=== PATIENT | female | born 1935 | race Caucasian/White ===

== ENCOUNTER 2016-11-02 16:36 | Inpatient (IN) | payer MEDICARE, BC ==
[~2016-11-02] VITALS: Ht 170.2 cm; Wt 86.6 kg
[~2016-11-02 16:36] MED LIST: BETAPACE 80 MG80 MG PO; BUSPAR5 MG PO; CORDARONE200 MG PO; CORGARD40 MG PO; COZAAR100 MG PO; ELIQUIS5 MG PO; GABAPENTIN100 MG PO; HYDROCHLOROTHIA25 MG PO; LASIX20 MG PO; LIBRAX CAPSULE1 CAP PO; MULTAQ400 MG PO; NORVASC10 MG PO; NORVASC5 MG PO; POTASSIUM20 MEQ/11 PO; PREDNISONE10 MG PO; PREDNISONE5 MG PO; PRILOSEC20 MG PO; TYLENOL W/CODEI1 TAB PO
[2016-11-02 18:06] LABS: BASOPHILS 0.2 % (0.0-2.0); EOSINOPHILS 0 % (0-7); HEMOGLOBIN 12.4 g/dL (12-16); IMMATURE GRANULOCYTES 0.3 % (0-5); LYMPHOCYTES 7.4 % (15-50); MCHC 32.6 g/dL (31.0-37.0); MEAN PLATELET VOLUME 10.3 fL (7.4-10.4); MONOCYTES 6.3 % (2-11); NEUTROPHILS 85.8 % (40-80); RDW 14.8 % (11.5-14.5); WBC 12.9 10x3/uL (4.8-10.8)
[2016-11-02 18:12] LABS: PLATELET COUNT 233 10x3/uL (130-400)
[2016-11-02 18:41] LABS: ALBUMIN 2.7 g/dL (3.4-5.0); ALKALINE PHOSPHATASE 61 U/L (46-116); ALT (SGPT) 79 U/L (10-68); BILIRUBIN - TOTAL 0.62 mg/dL (0.2-1.3); CALC OSMOLALITY 278 mosm/kg (275-300); CALCIUM 8.4 mg/dL (8.5-10.1); CARBON DIOXIDE 29.6 mmol/L (21.0-32.0); CHLORIDE - SERUM 97 mmol/L (98-107); POTASSIUM - SERUM 3.5 mmol/L (3.5-5.1); PROTEIN - SERUM 6.5 g/dL (6.4-8.2); SODIUM 136 mmol/L (136-145); UREA NITROGEN 28 mg/dL (7-18); eGFR NON AFRICAN AMERICAN 25 mL/min (90-120)
[2016-11-02 18:42] LABS: GLUCOSE 125 mg/dL (74-106)
[2016-11-02 19:05] LABS: PRO BNP 14181 pg/mL (0-450)
[2016-11-02 19:09] LABS: CREATINE KINASE 1985 UL (21-215)
[2016-11-02 19:13] LABS: TROPONIN-I 0.859 ng/mL (0.000-0.060)
[2016-11-02 19:14] LABS: CKMB 8.8 U/L (0.0-3.6)
--- NOTE | 2016-11-02 21:12 | NUR ---
IN AND OUT CATH PERFORMED BY FAMILY, IV AB'S HUNG PER MAR, RAYNE WELL, DENIES NEEDS, SR'S UP X2, CL IN REACH
[2016-11-03] VITALS (55 sets, daily range): BP systolic 73–153; BP diastolic 48–103; Ht 170.2 cm; Wt 86.6 kg
--- NOTE | 2016-11-03 02:06 | NUR ---
IN AND OUT CATH PERFORMED USING SENIOR PROCUREMENT SPECIALIST PER ORDERS, 200 CC TEA COLORED URINE OBTAINED, REPOSITIONED IN BED, SR'S UP X2, CL IN REACH
--- NOTE | 2016-11-03 03:26 | NUR ---
PT AGITATED WITH VOMITING, ZOFRAN GIVEN PER MAR, FAMILY AT BEDSIDE, SR'S UP X2, CL IN REACH
--- NOTE | 2016-11-03 03:43 | NUR ---
PATIENT EXHIBITING ANXIETY AND CONFUSION, RAPID RESP WITH VOMITING, ZOFRAN ADMINISTERED PER RAYNE MENDOZA WELL, FAMILY IN ROOM HELPING CALM PATIENT, RESP THERAPY CONTACTED, MD PAGED FOR FURTHER ORDERS, AWAITING RETURN CALL, WILL MONITOR
--- NOTE | 2016-11-03 04:08 | NUR ---
PAGED SECOND TIME, AWAITING RETURN CALL
--- NOTE | 2016-11-03 04:20 | NUR ---
DR HAHN CONTACTED BY ICU NURSE, ORDERS RECIEVED TO TRANSFER TO ICU
--- NOTE | 2016-11-03 04:40 | NUR ---
PT RECEIVED FROM [facility]. PLACED ON TELEMETRY, IN UNCONTROLLED AFIB, HR IN THE 160'S. PT HAS 20G IN LEFT AC. CURRENTLY RECEIVING BREATHING TREATMENT FROM RESPIRATORY. PT O2 SAT IN LOW 80'S, HOWEVER ABG RESULTS SHOW HER AT 93. CURRENTLY CONTACTING PHYSICIANS FOR ORDERS. WILL CONTINUE TO MONITOR.
--- NOTE | 2016-11-03 04:45 | NUR ---
UPDATE GIVEN TO DR. HAHN VIA PHONE, NEW ORDERS RECIEVED
--- NOTE | 2016-11-03 04:50 | NUR ---
CONSULT CALLED TO DR. LAWS, NEW ORDERS RECEIVED
--- NOTE | 2016-11-03 04:55 | NUR ---
CONSULT CALLED TO DR. FERRIS, NEW ORDERS RECIEVED,
--- NOTE | 2016-11-03 05:15 | NUR ---
DR. HAHN AT BEDSIDE, UPDATE GIVEN
[2016-11-03 05:24] LABS: BASOPHILS 0.1 % (0.0-2.0); EOSINOPHILS 0 % (0-7); HEMATOCRIT 35.8 % (36.0-48.0); HEMOGLOBIN 11.6 g/dL (12-16); IMMATURE GRANULOCYTES 0.3 % (0-5); LYMPHOCYTES 4.4 % (15-50); MCH 30.9 pg (26.0-34.0); MCHC 32.4 g/dL (31.0-37.0); MCV 95.2 fL (80.0-100.0); MEAN PLATELET VOLUME 9.9 fL (7.4-10.4); MONOCYTES 6.2 % (2-11); PLATELET COUNT 215 10x3/uL (130-400); RBC 3.76 10x6/uL (4.00-5.40); RDW 14.8 % (11.5-14.5); WBC 14.8 10x3/uL (4.8-10.8)
[2016-11-03 05:49] LABS: ALBUMIN 2.3 g/dL (3.4-5.0); ALKALINE PHOSPHATASE 51 U/L (46-116); ALT (SGPT) 74 U/L (10-68); BILIRUBIN - TOTAL 0.53 mg/dL (0.2-1.3); CALC OSMOLALITY 280 mosm/kg (275-300); CALCIUM 8.3 mg/dL (8.5-10.1); CARBON DIOXIDE 28.5 mmol/L (21.0-32.0); CHLORIDE - SERUM 98 mmol/L (98-107); GLUCOSE 110 mg/dL (74-106); POTASSIUM - SERUM 3.4 mmol/L (3.5-5.1); PROTEIN - SERUM 5.9 g/dL (6.4-8.2); SODIUM 137 mmol/L (136-145); UREA NITROGEN 28 mg/dL (7-18); eGFR NON AFRICAN AMERICAN 25 mL/min (90-120)
[2016-11-03 06:05] LABS: CKMB 4.1 U/L (0.0-3.6)
[2016-11-03 06:07] LABS: CREATINE KINASE 1611 UL (21-215); TROPONIN-I 0.872 ng/mL (0.000-0.060)
--- NOTE | 2016-11-03 07:00 | NUR ---
REPORT RECIEVED, INTITIAL ASSESSMENT COMPLETE, PLEASE SEE FLOW SHEETS FOR DETAILS. BED LOW AND LOCKED, CALL LIGHT IN REACH. PT RESTLESS, TALKING ABOUT GOING TO HER MOTHER IN THE KITCHEN, BUT KNOWS WHO SHE IS, THE YEAR, WHERE SHE IS, AND WHATS GOING ON. TRYING TO GET OOB. DENIES PAIN. WILL CONTINUE TO MONITOR.
--- NOTE | 2016-11-03 09:35 | NUR ---
DR FERRIS SPOKE WITH FAMILY AND PT WAS GIVE A CODE STATUS OF DNR.
--- NOTE | 2016-11-03 09:38 | NUR ---
PT RHYTHM CONVERTED TO SINUS RHYTHM AND IS NOW AT A REATE OF 50. PAGED DR LAWS TO NOTIFY HIM.
--- NOTE | 2016-11-03 09:41 | NUR ---
HR WAS 49, CHANGED NEXTERONE TO 0.5MG/HR.
--- NOTE | 2016-11-03 09:44 | NUR ---
SPOKE WITH DR LAWS, HE AGREED TO THE CHANGE IN THE NEXTERONE RATE AND WAS NOTIFIED OF PT STATUS. HE ALSO WANTS ALL PO MEDS HELD PT IS NOT DOING WELL WITH THAT. WILL CONTINUE TO MONITOR.
--- NOTE | 2016-11-03 10:04 | NUR ---
Is the patient Alert and Oriented? No 0 * How many steps to enter\exit or inside your home? 4 0 * PCP DR. CHEN 0 * Pharmacy [facility] IN [place] 0 * Preadmission Environment Home with Family 0 * ADLs Independent 0 * Equipment Rolling Walker 0 * List name and contact numbers for known caregivers / representatives who currently or will assist patient after discharge: : CHANDU (H) [phone] (C) [phone] NEICE: TONE BALLARD [phone] 0 * Community resources currently utilized Home Health 0 * Please name any agencies selected above. PATIENT IS CURRENT WITH [employer] 0 * Additional services required to return to the preadmission environment? No 0 * Can the patient safely return to the preadmission environment? Yes 0 * Has this patient been hospitalized within the prior 30 days at any hospital? No 0 PATIENT IS ON 100% MASK. SHE IS NOT ABLE TO ANSWER QUESTIONS AT THIS TIME. HER NEICE, TONE, IS AT THE BEDSIDE AND PROVIDING INFORMATION. PATIENT LIVES AT HOME WITH HER , LYLY. SHE WAS INDEPENDENT WITH HER WALKER AT HOME. HE WILL BE AVAILABLE TO DRIVE HER HOME AT DISCHARGE. PATIENT'S PCP IS DR. CHEN. SHE GETS HER MEDS FROM [facility] IN [place]. SHE HAS A WALKER AT HOME. PATIENT HAS HELP THAT COMES IN FOR ASSISTANCE IN THE HOME DOING CHORES. PATIENT IS CURRENT WITH [employer]. PATIENT MAY BENEFIT FROM REHAB AT DISCHARGE IF SHE QUALIFIES AND IS AGREEABLE. CM TO FOLLOW.
[2016-11-03 10:57] LABS: APPEARANCE CLEAR (CLEAR); BILIRUBIN NEGATIVE (NEGATIVE); COLOR YELLOW (YELLOW); GLUCOSE NEGATIVE (NEGATIVE); KETONE NEGATIVE (NEGATIVE); LEUKOCYTE ESTERASE TRACE (NEGATIVE); NITRITE NEGATIVE (NEGATIVE); PROTEIN 1+ mg/dL (NEGATIVE); SPECIFIC GRAVITY 1.015 (1.005-1.020); UROBILINOGEN NORMAL (NORMAL); WHITE CELLS - URINE 0-5 /hpf (0-5)
[2016-11-03 10:58] LABS: BACTERIA FEW /hpf (NONE SEEN); EPITHELIAL CELLS RARE /hpf (0-5); MUCUS <1+ /lpf (NONE SEEN); RED CELLS - URINE RARE /hpf (0-5)
--- NOTE | 2016-11-03 11:00 | NUR ---
REASSESSMENT COMPLETE, PLEASE SEE FLOW SHEETS FOR DETAILS. RECIEVED ORDERS FOR 1MG ATIVAN Q4H PRN FROM DR FERRIS FOR ANXIETY. PT RESTLESS IN BED AND WANTING TO LEAVE. SHE IS CONFUSED AND MOST OF WHAT SHE IS SAYING IS NOT RECOGNIZABLE WORDS. AT BEDSIDE. VSS AT THIS TIME, WILL CONTINUE TO MONITOR.
--- NOTE | 2016-11-03 11:45 | NUR ---
USING NURSING JUDGEMENT, GAVE PT ORDERED PRN MORPHINE, DISPLAYING SYMPTOMS OF BEING IN PAIN.
--- NOTE | 2016-11-03 13:00 | NUR ---
PT RESTING, AT BEDSIDE. NO NEEDS/PAIN AT THIS TIME. WILL CONTINUE TO MONITOR.
--- NOTE | 2016-11-03 15:00 | NUR ---
REASSESSMENT COMPLETE, PLEASE SEE FLOW SHEETS FOR DETAILS. VSS AT THIS TIME, BED LOW AND LOCKED, ALARM ON, CALL LIGHT IN REACH, WILL CONTINUE TO MONITOR.
--- NOTE | 2016-11-03 17:03 | NUR ---
PT RESTING, DENIES PAIN/NEEDS AT THIS TIME. VSS AT THIS TIME, BED LOW AND LOCKED, AT BEDSIDE. WILL CONTINUE TO MONITOR.
--- NOTE | 2016-11-03 19:00 | NUR ---
RECEIVED PATIENT IN BED RESTING WITH EYES CLOSED, AT BEDSIDE. PATIENT IS DISORIENTED TO TIME/SITUATION, EYES PERRLA @ 4MM WITH BRISK RESPONSE. NON-REBREATHER @ 15L IN USE, PATIENT KEEPS REMOVING MASK AND REPLACING ON FACE. S1/S2 NOTED WITH PATIENT IN CONTROLLED AFIB ON TELEMETRY. BREATHING IS SHALLOW AND AND PATIENT BECOMES SOB QUICKLY WITHOUT MASK, EXPIRATORY WHEEZE NOTED BILATERAL UPPER AND DIMINISHED LOWER LOBES. ABDOMEN IS SOFT AND NON-TENDER, BOWEL SOUNDS ACTIVE X4. PATIENT HAS DISLOCATED R SHOULDER IMMOBILIZED IN SLING, FULL ROM REMAINING EXTREMITIES. PATIENT HAS NEWBY SECURED BY STATLOCK WITH CONCENTRATED YELLOW URINE NOTED IN COLLECTION. ALL PULSES PALPABLE, SLIGHT WEAKNESS NOTED ALL EXTREMITIES. PIV NOTED IN L AC WITH TRIPLE LUMEN ATTATCHED, SEE FLOW SHEET FOR FLUIDS. BED TABLE/CALL LIGHT IN REACH, PATIENT DENIES PAIN OR OTHER NEEDS AT THIS TIME. PATIENT INSTRUCTED TO CALL FOR ASSISTANCE, WILL CONTINUE TO MONITOR.
--- NOTE | 2016-11-03 21:00 | NUR ---
REPOSITIONED FOR COMFORT AND ORAL CARE PROVIDED. PATIENT REQUESTED WATER AND WAS ABLE TO SWALLOW 2100 MEDS WITHOUT DIFFICULTY. PATIENT RESTING IN BED WITH EYES CLOSED AND BREATHING SHALLOW ON NON-REBREATHER. WILL CONTINUE TO MONITOR.
--- NOTE | 2016-11-03 23:00 | NUR ---
REASSESSMENT COMPLETE, PATIENT DISORIENTED TO TIME. PATIENT ON NON-REBREATHER @ 15L, BREATHING IS SHALLOW AND IRREGULAR. PATIENT IN CONTROLLED AFIB ON TELEMETRY, S1/S2 NOTED. R ARM IN SLING FROM R SHOULDER DISLOCATION, CAREFULLY REPOSITIONED FOR COMFORT. PATIENT C/O NEEDING TO URINATE, EXPLAINED TO PATIENT ABOUT CATHETER AND FUNCTION. PATIENT STATES UNDERSTANDING, BUT STILL WANTS TO GET UP TO URINATE. PATIENT AT BEDSIDE, INSTRUCTED TO CONTACT NURSES FOR ASSISTANCE. PATIENT DENIES OTHER NEEDS AT THIS TIME, WILL CONTINUE TO MONITOR.
[2016-11-04] VITALS (25 sets, daily range): BP systolic 98–149; BP diastolic 60–94
--- NOTE | 2016-11-04 01:10 | NUR ---
PATIENT RESTING IN BED WITH EYES CLOSED ON NON-REBREATHER @ 15L. PATIENT GIVEN PRN ATIVAN FOR ANXIETY, NOW RESTING QUIETLY. ORAL CARE/REPOSITIONING PROVIDED FOR COMFORT, HASBAND AT BEDSIDE. NO FURTHER NEEDS AT THIS TIME, WILL CONTINUE TO MONITOR.
--- NOTE | 2016-11-04 03:00 | NUR ---
REASSESSMENT COMPLETE, NO CHANGES FROM PREVIOUS ASSESSMENT. PATIENT RESTING IN BED WITH EYES CLOSED, BREATHING IS SHALLOW AND IRREGULAR ON NON-REBREATHER @ 15L. ORAL CARE AND REPOSITIONING FOR COMFORT, STAYING AT BEDSIDE. PATIENT DENIES PAIN OR OTHER NEEDS AT THIS TIME, ALL VSS. WILL CONTINUE TO MONITOR.
[2016-11-04 04:18] LABS: BASOPHILS 0.1 % (0.0-2.0); EOSINOPHILS 0.3 % (0-7); HEMATOCRIT 39.7 % (36.0-48.0); HEMOGLOBIN 12.6 g/dL (12-16); IMMATURE GRANULOCYTES 0.4 % (0-5); LYMPHOCYTES 8.5 % (15-50); MCH 30.2 pg (26.0-34.0); MCHC 31.7 g/dL (31.0-37.0); MCV 95.2 fL (80.0-100.0); MEAN PLATELET VOLUME 10.8 fL (7.4-10.4); MONOCYTES 9.1 % (2-11); NEUTROPHILS 81.6 % (40-80); PLATELET COUNT 256 10x3/uL (130-400); RBC 4.17 10x6/uL (4.00-5.40); RDW 14.8 % (11.5-14.5); WBC 14.8 10x3/uL (4.8-10.8)
[2016-11-04 04:46] LABS: ALBUMIN 2.3 g/dL (3.4-5.0); ANION GAP 13.4 mmol/L (8-16); BILIRUBIN - TOTAL 0.38 mg/dL (0.2-1.3); CARBON DIOXIDE 28.9 mmol/L (21.0-32.0); CREATININE - SERUM 2.3 mg/dL (0.6-1.3); MAGNESIUM - SERUM 2.1 mg/dL (1.8-2.4); POTASSIUM - SERUM 4.3 mmol/L (3.5-5.1); PROTEIN - SERUM 6.3 g/dL (6.4-8.2)
--- NOTE | 2016-11-04 05:00 | NUR ---
PATIENT RESTING IN BED WITH EYES CLOSED, RESTING IN CHAIR AT BEDSIDE. ORAL CARE AND REPOSITIONING PROVIDED, NO FURTHER NEEDS AT THIS TIME. WILL CONTINUE TO MONITOR.
--- NOTE | 2016-11-04 07:21 | NUR ---
REPORT RECIEVED, INITIAL ASSESSMENT COMPLETE, PLEASE SEE FLOW SHEETS FOR DETAILS. PROVIDED ORAL CARE AND TURNING. BED LOW AND LOCKED, CALL LIGHT IN REACH, SCD'S ON AND RUNNING-SKIN CHECK COMPLETE AND WNL. VSS AT THIS TIME, WILL CONTINUE TO MONITOR.
--- NOTE | 2016-11-04 09:00 | NUR ---
FAMILY AT BEDSIDE, PT REQUESTING SIPS OF WATER. SHE IS COHERENT AND IS DEMANDING IT, SO IT WAS PROVIDED AND SHE DID WELL WITH IT THOUGH COUGHED AFTERWARD, THOUGH STATED IT WAS NOT GOING "DOWN THE WRONG PIPE". VSS AT THIS TIME, WILL CONTINUE TO MONITOR.
--- NOTE | 2016-11-04 10:00 | NUR ---
SPOKE WITH DR FERRIS ABOUT PT GETTING SIPS OF WATER, HE WANTS HER TO BE OFFERED FOOD, ALLOWED SIPS OF WATER AND TO START PROCALAMINE AT 50ML/HR.
--- NOTE | 2016-11-04 11:20 | NUR ---
REASSESSMENT COMPLETE, PLEASE SEE FLOW SHEETS FOR DETAILS. IV INFILTRATED, BED WET, TWO TRIES GOT NEW IV IN LEFT FOREARM. FULL BED BATH AND LINEN CHANGE. TURNED TO SIDE. VSS AT THIS TIME, WILL CONTINUE TO MONITOR.
--- NOTE | 2016-11-04 13:00 | NUR ---
PT RESTING, DENIES PAIN/NEEDS AT THIS TIME, BED LOW AND LOCKED, CALL LIGHT IN REACH. VSS AT THIS TIME, WILL CONTINUE TO MONITOR.
--- NOTE | 2016-11-04 13:02 | CN ---
PATIENT NAME:DIANDRA SRIVASTAVA MEDICAL RECORD: [id number] : 33 LOCATION:[id number] ADMIT DATE: 11/02/16 ACCOUNT: [id number] CONSULTING PHYSICIAN: PRISCA LAWS MD REFERRING PHYSICIAN: HUGO HAHN M.D. 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 The patient intermittently oriented. She has reverted back to atrial fibrillation, currently on Cordarone drip. A few episodes of MAT ____ she is attempting to convert to sinus rhythm, pressure is tolerating. We are to see her regarding her cardiovascular status. PAST MEDICAL HISTORY: Includes: 1. History of hypertension. 2. Atrial fibrillation. 3. Congenital heart disease described above. MEDICATIONS: Librax 1 t.i.d., nadolol 40 every day, amlodipine 10 every day, Cordarone 200 b.i.d., losartan 100 every day, BuSpar 5 every day, Lasix 20 every day, and omeprazole 20 every day. SOCIAL HISTORY: Unobtainable. REVIEW OF SYSTEMS: Unobtainable. PHYSICAL EXAMINATION: GENERAL: Elderly female, currently on nonrebreather, intermittently answers questions. VITAL SIGNS: Blood pressure 104/88, pulse currently 106. HEENT: Normocephalic and atraumatic. NECK: No bruits are noted. HEART: Irregular, II/ systolic ejection murmur. LUNGS: Decreased air excursion, some expiratory wheezes. ABDOMEN: Soft and nontender. EXTREMITIES: Pulses are actually palpable, 1+. There is no edema. DIAGNOSTIC DATA: ECG shows initially sinus rhythm, then atrial fibrillation. IMPRESSION: Intermittent atrial fibrillation. At this point, suspect secondary to recent injury, increased catecholamine drive, etc. PLAN: Continue IV amiodarone, this should provide both for rate control and hopefully restore normal sinus rhythm as current hospital course improves. Further recommendations based on above. TRANSINT:[id number] Voice Confirmation ID: [id number] DOCUMENT ID: [id number] CONSULT REPORT [id number] KLDIANDRA BALLARD,PRISCA Henson MD at 1302 CC: [id number] DICTATION DATE: 11/03/1650 CALL WORKER PERSON: 11/03/16 1000 ADM IN [facility] [address] [id number]
--- NOTE | 2016-11-04 15:00 | NUR ---
REASSESSMENT COMPLETE, PLEASE SEE FLOW SHEETS FOR DETAILS. VSS AT THIS TIME, WILL CONTINUE TO MONITOR.
--- NOTE | 2016-11-04 17:01 | NUR ---
PT RESTING, FAMILY AT BEDSIDE. DENIES PAIN/NEEDS AT THIS TIME, WILL CONTINUE TO MONITOR.
--- NOTE | 2016-11-04 19:20 | NUR ---
RECEIVED PATIENT ASLEEP IN BED WITH EYES CLOSED, BREATHING IS SHALLOW AND RAPID. PATIENT IS DISORIENTED TO TIME/SITUATION, BECOMES SHORT OF BREATH WHEN REMOVED FROM MASK. EYES PERRLA @ 3MM WITH BRISK RESPONSE, SCLERA IS WHITE AND CLEAR. NON-REBREATHER MASK IN USE @ 15L, PADDING PLACED OVER BRIDGE OF NOSE TO PREVENT BREAKDOWN. S1/S2 NOTED WITH PATIENT IN CONTROLLED AFIB ON TELEMETRY. BREATHING IS RAPID AND SHALLOW WITH USE OF ACCESSORY MUSCLES, EXPIRATORY WHEEZE NOTED BILATERAL UPPER WITH DIMINISHED LOWER LOBES. ABDOMEN IS DISTENDED AND SOFT, NON-TENDER TO PALPATION. 16FR NEWBY SECURED BY STATLOCK WITH YELLOW CONCENTRATED URINE NOTED IN BAG. ALL PULSES PALPABLE WITH WEAKNESS NOTED IN ALL EXTREMITIES. 20G IV NOTED L FOREARM, SEE FLOW SHEET FOR FLUIDS. PATIENT RECEIVING PROCALAMINE IV @ 50ML/HR, NO REDNESS OR IRRITATION NOTED. PATIENT REPOSITIONED FOR COMFORT, AT BEDSIDE. NO FURTHER NEEDS AT THIS TIME, WILL CONTINUE TO MONITOR.
--- NOTE | 2016-11-04 21:00 | NUR ---
PATIENT RESTING IN BED WITH EYES CLOSED, BREATHING IS SHALLOW AND RAPID WITH USE OF ACCESSORY MUSCLES. PATIENT ON 15L VIA NON-REBREATHER MASK, EXPIRATORY WHEEZE NOTED BILATERAL UPPER LOBES AND DIMINISHED LOWER LOBES. PATIENT AT BEDSIDE, DISCUSSED ANY QUESTIONS. VSS AND WILL CONTINUE TO MONITOR.
--- NOTE | 2016-11-04 23:00 | NUR ---
REASSESSMENT COMPLETE, PATIENT LAYING IN BED WITH EYES CLOSED. BREATHING IS IRREGULAR AND SHALLOW WITH USE OF ACCESSORY MUSCLES. EXPIRATORY WHEEZE NOTED BILATERAL UPPER LOBES WITH DIMINISHED LOWER LOBES. PATIENT IS SLIGHTLY PALE AND RESTLESS, ELEVATED HOB AND REPOSITIONED. PATIENT REQUESTED WATER AND HAD NO DIFFICULTIES SWALLOWING, INSTRUCTED ON HOW TO PROVIDE LIQUIDS. PATIENT IN CONTROLLED AFIB ON TELEMETRY WITH RATE OF 89, NO FURTHER NEEDS AT THIS TIME. ALL VSS AND WILL CONTINUE TO MONITOR.
[2016-11-05] VITALS (25 sets, daily range): BP systolic 93–144; BP diastolic 50–99
--- NOTE | 2016-11-05 03:00 | NUR ---
REASSESSMENT COMPLETE, PATIENT RESTING IN BED WITH EYES CLOSED. BREATHING IS SHALLOW AND RAPID WITH USE OF ACCESSORY MUSCLES, EXPIRATORY WHEEZE NOTED BILATERAL UPPER WITH DIMINISHED LOWER.S1/S2 NOTED WITH PATIENT IN CONTROLLED AFIB ON TELEMETRY. AT BEDSIDE, DISCUSSED QUESTIONS OR CONCERNS HE HAS. ALL VSS, NO FURTHER NEEDS AT THIS TIME, WILL CONTINUE TO MONITOR.
--- NOTE | 2016-11-05 05:00 | NUR ---
PATIENT CONSTANTLY REMOVES MASK WHILE RESTING, AND RN HAVE REPLACED MULTIPLE TIMES. PATIENT O2 SAT DROPS DRAMATICALLY WHEN OFF OF OXYGEN, DISCUSSED WITH NEED FOR MASK. EXPIRATORY WHEEZE NOTED BILATERAL UPPER AND DIMINISHED LOWER LOBES, BREATHING IS RAPID AND SHALLOW WITH USE OF ACCESSORY MUSCLES. REPOSITIONED FOR COMFORT, NO FURTHER NEEDS AT THIS TIME. ALL VSS AND WILL CONTINUE TO MONITOR.
[2016-11-05 05:14] LABS: BASOPHILS 0.2 % (0.0-2.0); EOSINOPHILS 0.8 % (0-7); HEMATOCRIT 38.6 % (36.0-48.0); HEMOGLOBIN 12.5 g/dL (12-16); IMMATURE GRANULOCYTES 0.2 % (0-5); LYMPHOCYTES 9.4 % (15-50); MCH 30.6 pg (26.0-34.0); MCHC 32.4 g/dL (31.0-37.0); MCV 94.6 fL (80.0-100.0); MEAN PLATELET VOLUME 10.9 fL (7.4-10.4); MONOCYTES 8.1 % (2-11); NEUTROPHILS 81.3 % (40-80); PLATELET COUNT 243 10x3/uL (130-400); RBC 4.08 10x6/uL (4.00-5.40); WBC 12.6 10x3/uL (4.8-10.8)
[2016-11-05 05:29] LABS: ALBUMIN 1.9 g/dL (3.4-5.0); ANION GAP 12.3 mmol/L (8-16); BILIRUBIN - TOTAL 0.39 mg/dL (0.2-1.3); CALCIUM 8.6 mg/dL (8.5-10.1); CARBON DIOXIDE 29.8 mmol/L (21.0-32.0); CREATININE - SERUM 2.3 mg/dL (0.6-1.3); MAGNESIUM - SERUM 2.3 mg/dL (1.8-2.4); POTASSIUM - SERUM 4.1 mmol/L (3.5-5.1); PROTEIN - SERUM 5.1 g/dL (6.4-8.2)
--- NOTE | 2016-11-05 08:00 | NUR ---
SPOKE WITH PT WHO STATED HE WISHED TO KNOW MORE INFORMATION ABOUT HOSPICE. CASE MANAGEMENT NOTIFIED. WILL CONTINUE PLAN OF CARE.
--- NOTE | 2016-11-05 09:00 | NUR ---
PT REQUESTED TO USE BEDPAN TO HAVE A BOWEL MOVEMENT. NOTED NO BOWEL MOVEMENT. BOWEL SOUNDS HYPOACTIVE TO ALL QUADRANTS. NO ACUTE DISTRESS NOTED. REPOSITIONING PROVIDED TO PT. WILL CONTINUE PLAN FO CARE.
--- NOTE | 2016-11-05 09:41 | NUR ---
I SPOKE WITH FAMILY YESTERDAY REGARDING INTEREST IN HOSPICE FOR THE PATIENT. THEY HAD WANTED TO SPEAK WITH PATIENT'S AND HE WOULD LET US KNOW HIS THOUGHTS TODAY. I SPOKE WITH PATIENT'S , LYLY. HE REQUESTED TO SPEAK WITH HOSPICE FOR INFORMATIONAL MEETING. I CONTACTED [facility] AND PIERRE IS COMING TO SPEAK WITH CHANDU AND HIS FAMILY MEMBER, DANIELLE BOYD. CM TO FOLLOW.
--- NOTE | 2016-11-05 09:54 | NUR ---
NUTRITION MONITORING & EVAL CHART REVIEWED. PT REMAINS NPO. PROCALAMINE STARTED @ 50 CC/HR. PROVIDING ~300 KCAL, [address] FOLLOWING
--- NOTE | 2016-11-05 10:00 | NUR ---
NOTED NEW ORDER FOR NGT PLACEMENT. ALSO NOTED ORDER TO START NGT FEEDINGS AFTER NGT IS PLACED. NOTIFIED NUTRITION. WILL PLACE NGT SHORTLY.
--- NOTE | 2016-11-05 10:09 | NUR ---
FAMILY HAS MET WITH [facility], PIERRE. THEY ARE WANTING TO WAIT UNTIL TUESDAY TO MAKE A DECISION BECAUSE PATIENT HAS JUST BEEN STARTED ON A NEW ABX. PATIENT'S FAMILY WANTS HER TO REMAIN IN ICU AND HER AND FAMILY ARE STAYING WITH HER. SHE IS A DNR. WILL AWAIT DISCUSSION WITH DR. HAHN REGARDING STAYING IN ICU AND FAMILY STAYING WITH HER.
--- NOTE | 2016-11-05 10:16 | NUR ---
SUCTIONING SET UP IN ROOM AT THIS TIME. THIS NURSE WENT TO SET UP TO PLACE NGT PER DR ORDERS, PT STATED HE DID NOT WANT THE NGT PLACED UNTIL HE SPEAKS WITH PT DR HAHN FIRST. WILL RESPECT PT FAMILY REQUEST.
--- NOTE | 2016-11-05 10:16 | NUR ---
NUTRITION MONITORING & EVAL WILL START TUBE FEEDS PER MD VERBAL ORDER. 1)PULMOCARE @ 10 CC/HR 2)INCREASE 10 CC/HR Q 8 HOURS TOLERATED TO GOAL RATE 50 CC/HR 3)75 CC H2O FLUSH Q 4 HOURS PER PUMP PROCALAMINE TO DC WHEN TF'S START RD FOLLOWING
--- NOTE | 2016-11-05 10:22 | NUR ---
LYING IN BED RESITNG AT THIS TIME. PT STILL NOTED TO PULL NONREBREATHER MASK OFF FREQUENTLY. REORIENTATION PROVIDED TO PT AND MASK PLACED BACK TO PT FACE. NO ACUTE DISTRESS NOTED. WILL CONTINUE PLAN FO CARE.
--- NOTE | 2016-11-05 11:31 | NUR ---
RESTING QUIETLY AT THIS TIME. NO ACUTE DISTRESS NOTED. PT STILL NOTED TO TAKE OFF NONREBREATHER MASK. FAMILY AT BEDSIDE AND REMINDS PT TO KEEP NONREBREATHER ON AND HELPS KEEP MASK IN PLACE. DENIES ANY NEEDS. WILL CONTINUE PLAN FO CARE.
--- NOTE | 2016-11-05 13:06 | NUR ---
NOTED SOME IV MED ORDERED WHICH ARE NOT COMPATIBLE WITH OTHER ORDERED IV MEDS. SECOND PERIPHERAL IV SET TO RIGHT FOREARM, 22G. FLUSHES WELL. NO ACUTE DISTRESS NOTED AT THIS TIME. FAMILY AT BEDSIDE. WILL CONTINUE PLAN OF CARE.
--- NOTE | 2016-11-05 14:41 | NUR ---
PT NOTED ATTEMPTING TO SIT UP IN BED. STAFF ASKED PT IF SHE WAS UNCOMFORTABLE, PT STATED YES. REPOSITIONING PROVIDED, PT STATED COMFORT. NO ACUTE DISTRESS NOTED. PT IS NOTED TO NOT BE PULLING NONREBREATHER MASK OFF OFTEN AT THIS ITME. WILL CONTINUE PLAN OF CARE.
--- NOTE | 2016-11-05 15:55 | NUR ---
NOTED PT HEART RATE OF SINUS JUAN M OF 48. WILL CALL NODE JS DEVELOPER BASE MANAGER FOR PT.
--- NOTE | 2016-11-05 16:02 | NUR ---
CALLED OFFICE OF DR GRANADO TO SEE WHO IS NIGHT AUDITOR FOR CARDIOLOGY, NOTED DR LAWS IS NIGHT AUDITOR, DR LAWS HAD COME AND SEEN PT WHEN CONSULT WAS PLACED ON 11/03. DR LAWS PAGED. AT THIS TIME.
--- NOTE | 2016-11-05 16:11 | NUR ---
SPOKE WITH DR LAWS, NOTED ORDER TO STOP NITRO. ALSO ORDERED TO STOP CORDARONE FOR TODAY AND HE WOULD BE BY TO SEE PT TO REEVALUATE TOMORROW. WILL FOLLOW THROUGH WITH ORDERS. WILL CONTINUE PLAN OF CARE.
--- NOTE | 2016-11-05 17:04 | NUR ---
REPOSITIONING PROVIDED TO PT. PT NOTED TO SIT UP IN BED AND ATTEMPT TO TURN SELF. PT STATED COMFORT AFTER REPOSITIONING PROVIDED. NO ACUTE DISTRESS NOTED. FAMILY AT BEDSIDE. WILL CONTNIUE PLAN FO CARE.
--- NOTE | 2016-11-05 17:43 | NUR ---
RESTING IN BED AT THIS TIME. NO ACUTE DISTRESS NOTED. AWAKENS EASILY WHEN SPOKEN TO. FAMILY AT BEDSIDE. WILL CONTINUE PLAN OF CARE.
--- NOTE | 2016-11-05 19:30 | NUR ---
PT LETHARGIC AND CONFUSED, REORIENTATION PROVIDED, FAMILY AT BEDSIDE. NON REBREATHER IN PLACE @ 15L, SPO2 92 WITH EXP WHEEZING HEARD. PT REPOSITIONED WITH BONY PROMINENCES BRIDGED, RT ARM IN SLING. DENIES PAIN. FOLLOWS SIMPLE COMMANDS. BED ALARM ON, ROOM VISIBLE FROM NURSES STATION. CPOC.
--- NOTE | 2016-11-05 20:00 | NUR ---
SELMA AT BEDSIDE WITH FAMILY. NOTES PT AGITATION, NEW ORDERS REC'D.
--- NOTE | 2016-11-05 21:25 | NUR ---
FAMILY AT BEDSIDE. PT REMAINS CONFUSED AND RESTLESS. SPO2 92. PT REPOSITIONED FOR COMFORT. DENIES PAIN AT THIS TIME. BED ALARM ON, ROOM VISIBLE FROM NURSES STATION. CPOC.
--- NOTE | 2016-11-05 23:33 | NUR ---
REASSESSMENT COMPLETE, SEE FLOWSHEET FOR ALL FINDINGS. NO ACUTE CHANGES AT THIS TIME. PT REPOSITIONED IN BED WITH BONY PROMINENCES BRIDGED. DENIES PAIN. AT BEDSIDE PROVIDING REORIENTATION. PT REMAINS SOB WITH AUDIBLE EXP WHEEZING. SPO2 91. BED ALARM ON, ROOM VISIBLE FROM NURSES STATION. CPOC.
[2016-11-06] VITALS (25 sets, daily range): BP systolic 104–140; BP diastolic 47–98
--- NOTE | 2016-11-06 01:27 | NUR ---
PARTIAL LINEN CHANGE COMPLETE. DENIES PAIN AT THIS TIME. PT REPOSITIONED IN BED FOR COMFORT. ORAL CARE PROVIDED. NO ACUTE CHANGES AT THIS TIME. ROOM VISIBLE FROM NURSES STATION, CPOC.
--- NOTE | 2016-11-06 03:35 | NUR ---
REASSESSMENT COMPLETE, SEE FLOWSHEET FOR ALL FINDINGS. NO ACUTE CHANGES AT THIS TIME. PT RESTING QUIETLY WITH AT BEDSIDE. NO S/S OF PAIN AT THIS TIME. PT REPOSITIONED WITH BONY PROMINENCES BRIDGED. ROOM VISIBLE FROM NURSES STATION. CPOC.
[2016-11-06 04:40] LABS: BASOPHILS 0.2 % (0.0-2.0); EOSINOPHILS 1.2 % (0-7); HEMATOCRIT 36.2 % (36.0-48.0); HEMOGLOBIN 11.6 g/dL (12-16); IMMATURE GRANULOCYTES 0.4 % (0-5); LYMPHOCYTES 6.9 % (15-50); MCH 30.1 pg (26.0-34.0); MCV 93.8 fL (80.0-100.0); MONOCYTES 6.5 % (2-11); NEUTROPHILS 84.8 % (40-80); PLATELET COUNT 229 10x3/uL (130-400); RBC 3.86 10x6/uL (4.00-5.40); WBC 12.4 10x3/uL (4.8-10.8)
[2016-11-06 04:50] LABS: ALBUMIN 1.7 g/dL (3.4-5.0); ANION GAP 13.8 mmol/L (8-16); BILIRUBIN - TOTAL 0.58 mg/dL (0.2-1.3); CALCIUM 8.6 mg/dL (8.5-10.1); CARBON DIOXIDE 29.2 mmol/L (21.0-32.0); CREATININE - SERUM 2.2 mg/dL (0.6-1.3); MAGNESIUM - SERUM 2.4 mg/dL (1.8-2.4); PROTEIN - SERUM 4.8 g/dL (6.4-8.2)
--- NOTE | 2016-11-06 07:00 | NUR ---
RESTRAINTS PLACED AT THIS TIME, BILATERAL SOFT WRIST RESTRAINTS. PT NOTED MULTIPLE ATTEMPTS AT TAKING NONREBREATHER OFF. REORIENTATION PROVIDED, PT NODDED HEAD TO STATE UNDERSTANDING THEN QUICKLY PULLS NONREBREATHER OFF AGAIN. OXYGEN SATURATION NOTED TO QUICKLY DESAT TO THE 70S WITH NONREBREATHER OFF. BILATERAL SOFT WRIST RESTRAINTS IN PLACE FOR PT SAFETY TO NOT PULL NONREBREATHER OFF AND DESAT. FAMILY NOT CURRENTLY AT BEDSIDE. WILL EXPLAIN TO FAMILY UPON NEXT VISIT. NO ACUTE DISTRESS NOTED. WILL CONTINUE PLAN OF CARE.
--- NOTE | 2016-11-06 10:22 | NUR ---
AWAKE IN BED AT THIS TIME. NO ACUTE DISTRESS NOTED. FAMILY AT BEDSIDE. WILL CONTINUE PLAN FO CARE.
--- NOTE | 2016-11-06 11:44 | NUR ---
NOTED PT IS UNABLE TO TOLERATE ANY PO MEDS. PHYSICIAN NOTIFIED.
--- NOTE | 2016-11-06 12:42 | NUR ---
SALINE LOCK TO LEFT FOREARM NOTED LEAKING AND NO LONGER USABLE. DC, CATHETER TIP INTACT. NOTED SOME RESTLESSNESS WITH AGGITATION BY PT, PRN GRODON ADMIN. NO ACUTE DISTRESS NOTED. WILL CONTINUE TO OBSERVE.
--- NOTE | 2016-11-06 14:46 | NUR ---
UP IN BED AT THIS TIME AWAKE. NO ACUTE DISTRESS NOTED. FAMILY AT BEDSIDE. WILL CONTINUE PLAN FO CARE.
--- NOTE | 2016-11-06 17:00 | NUR ---
PT NOTED NOT PULLING AT LINES. SOFT WRIST RESTRAINTS DC AT THIS TIME. WILL CONTINUE TO OBSERVE.
--- NOTE | 2016-11-06 18:38 | NUR ---
RESTING IN BED AT THIS TIME. EYES CLOSED. AWAKENS EASILY WHEN STAFF STATES PT NAME. NO ACUTE DISTRESS NOTED. WILL CONTINUE PLAN OF CARE.
--- NOTE | 2016-11-06 19:30 | NUR ---
PT CONFUSED AND RESTLESS, PULLS AT NRB MASK AND LINES. PT REPOSITIONED IN BED WITH BONY PROMINENCES BRIDGED. DENIES PAIN AT THIS TIME. SOB, WITH AUDIBLE EXP WHEEZES PRESENT. AT BEDSIDE. BED ALARM ON, ROOM VISIBLE FROM NURSES STATION. CPOC.
--- NOTE | 2016-11-06 21:00 | NUR ---
PT CONFUSED, CONTINUES TO PULL OFF NRB MASK AND PULL AT LINES. BILATERAL WRIST RESTRAINTS PLACED PER ORDER. AT BEDSIDE, STATES "SHE NEEDS THOSE RESTRAINTS". PT DENIES PAIN AT THIS TIME. REPOSITIONED IN BED WITH BONY PROMINENCES BRIDGED. BED ALARM ON, ROOM VISIBLE FROM NURSES STATION. CPOC.
[2016-11-07] VITALS (9 sets, daily range): BP systolic 71–149; BP diastolic 32–72
[2016-11-07 05:45] LABS: BASOPHILS 0.1 % (0.0-2.0); EOSINOPHILS 2.3 % (0-7); HEMATOCRIT 37.5 % (36.0-48.0); IMMATURE GRANULOCYTES 0.4 % (0-5); LYMPHOCYTES 8.5 % (15-50); MCH 30.1 pg (26.0-34.0); MEAN PLATELET VOLUME 10.7 fL (7.4-10.4); MONOCYTES 8.2 % (2-11); NEUTROPHILS 80.5 % (40-80); RBC 3.99 10x6/uL (4.00-5.40); RDW 15.2 % (11.5-14.5); WBC 14.8 10x3/uL (4.8-10.8)
[2016-11-07 05:50] LABS: PLATELET COUNT 292 10x3/uL (130-400)
[2016-11-07 06:00] LABS: ALBUMIN 1.6 g/dL (3.4-5.0); ANION GAP 9.8 mmol/L (8-16); BILIRUBIN - TOTAL 0.6 mg/dL (0.2-1.3); CALCIUM 8.6 mg/dL (8.5-10.1); CARBON DIOXIDE 31.2 mmol/L (21.0-32.0); MAGNESIUM - SERUM 2.5 mg/dL (1.8-2.4); PROTEIN - SERUM 5.6 g/dL (6.4-8.2)
--- NOTE | 2016-11-07 07:00 | NUR ---
NOTED PT IS HAVING LABORED BREATHING AT 36 RPM, OXYGEN SATURATION AT 83%, BLOOD PRESSURE 80/42, HEART RATE SINUS BRADYCARDIA AT 43. FAMILY IS AWARE, AT BEDSIDE. PT IS STILL ON NONREBREATHER AT 15L. LEFT PUPIL FIXED AT 3, RIGHT PUPIL SLUGGISH AT 3. PT NOT ATTEMPTING TO SPEAK, PT DOES NOT MOVE EYES OR ATTEMPT TO CLOSE EYES WHILE THIS NURSE WAS PERFORMING NEURO CHECKS. ATTEMPTED TO WAKE PT BY RUBBING CHEST. PT DID NOT BECOME MORE ALERT. RESTRAINTS DC AT THIS TIME. PT IS DNR. WILL CONTINUE PLAN OF CARE.
--- NOTE | 2016-11-07 08:55 | NUR ---
NOTED PT HAS NO PULSE RATE AND OXYGEN SATURATION IS NOT PICKING UP A READING. PT SKIN COLOR IS WHITE. NO MOVEMENT. NO RESPONSE TO SIMULI. AT BEDSIDE. STATED HE WISHED FOR [facility] IN [place] TO BE NOTIFIED. CALLED DR CARTWRIGHT OFFICE FOR HIM TO PRONOUNCE PT. [facility] STATED THEY WERE PAGING DR HAHN TO CONTACT THIS NURSE. WAITING FOR CALLBACK.
--- NOTE | 2016-11-07 09:07 | NUR ---
SPOKE TO DR HAHN TO NOTIFY FOR PT TO BE PRONOUNCED. HE STATED HE WOULD BE BY SHORTLY.
--- NOTE | 2016-11-07 10:16 | NUR ---
SPOKE WITH DR HAHN, STATED HE IS PULLING INTO HOSPITAL AT THIS TIME, WILL SEE PT TO PRONOUNCE IN A FEW MIN. NOTIFIED PT BASHIR.
--- NOTE | 2016-11-07 10:23 | NUR ---
PT PROUNOUNCED AT THIS TIME BY DR HAHN. POSTMORTEM CARE PROVIDED AT THIS TIME.
--- NOTE | 2016-11-07 10:32 | NUR ---
CALLED [facility], [facility] AT [phone], SPOKE TO MARIANNE. MARIANNE STATED SHE WOULD CALL THIS NURSE BACK TO NOTIFY WHEN THEN WOULD BE BY TO INVESTMENT FUND MANAGER PT. PT NOTIFIED.
--- NOTE | 2016-11-07 10:45 | NUR ---
NEWBY CATHETER DC AT THIS TIME, CATHER TIP INTACT. RIGHT FOREARM IV DC AT THIS TIME, CATHETER TIP INTACT.
--- NOTE | 2016-11-07 11:07 | NUR ---
CALLED [facility] TO NOTIFY THAT PT BODY HAD BEEN MOVED TO ROOM 2302. SPOKE WITH JOSIAS. SHE STATED SHE WOULD ALSO CALL THIS NURSE BACK TO NOTIFY WHEN HOME SHOULD ARRIVE.
--- NOTE | 2016-11-07 11:15 | NUR ---
SPOKE TO ISABELLA FROM [facility] FOR ETA CALLBACK, SHE STATED IT WOULD BE ABOUT AN HOUR TO AN HOUR AND A HALF UNTIL HOME COMES TO PICK PT BODY UP. PT NOTIFIED.
--- NOTE | 2016-11-07 11:31 | NUR ---
SPOKE TO SRIRAM AT THIS TIME, SPOKE TO JOSH OROZCO, REFERENCE NUMBER [id number]. JOSH STATED PT DOES NOT MEET [facility] BECAUSE OF AGE, OVER 74.
--- NOTE | 2016-11-07 11:40 | NUR ---
PT DOES NOT MEET CRITERIA TO NOTIFY [facility], RESTAURANT HOST/HOSTESS REQUESTED THIS NURSE TO NOTIFY [facility] OF PT STATUS. WILL FOLLOW THROUGH WITH REQUEST. CALLED [facility] AT THIS TIME. THEY STATED THEY WOULD NOTIFY [facility]. WAITING FOR CALLBACK.
--- NOTE | 2016-11-07 11:50 | NUR ---
RECIEVED CALLBACK FROM [facility], AT THIS TIME. WILL FAX NEEDED PAPERWORK AFTER PT BODY IS PICKED UP.
--- NOTE | 2016-11-07 11:50 | NUR ---
CALLED [facility] OFF[facility] TO NOTIFY PER TURNTABLE OPERATOR REQUESTS. THEY STATED SIENNA QUEVEDO IS BOTTOM P[employer] AND THEY WOULD NOTIFY HIM TO CALL THIS NURSE.
--- NOTE | 2016-11-07 12:08 | NUR ---
[facility] PROOF MACHINE OPERATOR SUPERVISOR HAS LEFT WITH PT BODY TO HOME AT THIS TIME. PROOF MACHINE OPERATOR SUPERVISOR NAME IS ELVA RODRIGUEZ. PT IS AWARE.
--- NOTE | 2016-11-07 12:16 | NUR ---
PAPERWORK FAXED TO [facility] OFFICE REQUESTED AT THIS TIME.
--- NOTE | 2016-11-07 12:17 | NUR ---
RECORD OF FAXED TO SCANNER OPERATOR AT THIS TIME.
--- NOTE | 2016-11-09 11:04 | NUR ---
Per CMS protocol, restraint report logged into data base.
--- NOTE | 2016-12-01 09:12 | CN ---
PATIENT NAME:DIANDRA SRIVASTAVA MEDICAL RECORD: [id number] : 33 LOCATION:[id number] ADMIT DATE: 11/02/16 ACCOUNT: [id number] CONSULTING PHYSICIAN: LAURIE FERRIS MD REFERRING PHYSICIAN: HUGO AHHN M.D. DATE OF CONSULTATION: 11/03/2016 Pulmonary Consultation CONSULT REQUESTING PHYSICIAN: Hugo Hahn MD REASON FOR CONSULTATION: Acute hypoxic respiratory failure, pneumonia, and pulmonary edema. HISTORY OF PRESENT ILLNESS: Ms. Srivastava is an 81-year-old female who was admitted yesterday through the ER with coughing, worsening shortness of breath. She has pain in the right shoulder, which was found out to be dislocated. The patient got into severe respiratory distress and the patient was transferred to the ICU. She was in fast atrial fibrillation, elevated cardiac enzymes and the BNP was in 14,000. The chest x-ray was getting worse. REVIEW OF SYSTEMS: Mainly in the history of present illness. PAST MEDICAL HISTORY: 1. Hypertension. 2. Atrial fibrillation. 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 5. COPD. PAST SURGICAL HISTORY: 1. She had open heart pulmonary valve replacement. 2. 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 ALLERGIES: SHE IS ALLERGIC TO METOPROLOL, STADOL, AND VERSED. HOME MEDICATIONS: On [employer] was reviewed. PERSONAL AND SOCIAL HISTORY: The patient is . She lives with her . She is an ex-smoker. She is a nondrinker. FAMILY HISTORY: Not known. PHYSICAL EXAMINATION: GENERAL: Now, the patient is very weak. She is in mild respiratory distress. VITAL SIGNS: The blood pressure is 131/74, pulse is 78, respiration is 18, temperature 98.8, and spO2 is 91% on 100% nonrebreather. HEENT: Conjunctiva are pale. Sclerae are nonicteric. NECK: Supple. There is elevated JVD. HEART: Rate and rhythm irregular. There is a grade II/ systolic murmur. CHEST: There are bilateral crackles. No wheezing. ABDOMEN: Soft, bowel sounds present. No hepatosplenomegaly. RECTAL: Deferred. EXTREMITIES: No cyanosis, no clubbing. There is 1+ pedal edema. SKIN: Warm, normal turgor. CONSULT REPORT [id number] DIANDRA SRIVASTAVA CENTRAL NERVOUS SYSTEM: The patient is awake and alert. There is no obvious cranial nerve abnormality. The gait was not tested. LABORATORY DATA: CBC: The WBC is 14.8, hemoglobin 11.6, hematocrit 35.8, and platelet count is 215. Neutrophils are 89%. Chemistry: Sodium is 137, potassium 3.4, chloride 98, bicarbonate is 28.5, BUN is 28, creatinine is 2, glucose 110. ABG: The pH is 7.44, pCO2 is 39.7, the pO2 is 64, bicarbonate is 27.3. The D-dimer was positive. The ultrasound of the lower extremity is negative for the DVT. IMPRESSION: 1. Acute myocardial infarction. 2. Acute hypoxic respiratory failure. 3. Pulmonary edema. 4. Congestive heart failure, most likely systolic dysfunction. 5. Atrial fibrillation with rapid ventricular response. 6. Chronic obstructive pulmonary disease, acute exacerbation. 7. Acute renal failure. 8. Pneumonia, most likely community-acquired, right more than the left. 9. Leukocytosis secondary to pneumonia. RECOMMENDATION: 1. Continue supplemental oxygen. 2. We will gently diurese her. Follow up the renal function. 3. Rate control per Dr. Kang. 4. Continue Levaquin. I will add Rocephin. 5. Xopenex and ipratropium nebulizer. 6. We will continue Lovenox for myocardial infarction as well as possible pulmonary embolus, though the ultrasound of the lower extremity is negative. The prognosis is guarded. Discussed with the family in length. The patient is DNR. The critical care time is [address] Hahn, once again, thank you for involving me in the care of Ms. Srivastava. TRANSINT:[id number] Voice Confirmation ID: [id number] DOCUMENT ID: [id number] LAURIE FERRIS MD at 0912 CC: HUGO HAHN M.D. [id number] DICTATION DATE: 11/03/16 0950 DANCE DIRECTOR: 11/03/16 1130 DIS IN 11/07/16 [place] [id number]
--- NOTE | 2017-01-31 15:15 | DS ---
PATIENT:DIANDRA SRIVASTAVA :33 MEDICAL RECORD: [id number] DISCHARGE SUMMARY ADMISSION DATE: 11/02/16 DISCHARGE DATE: 11/07/16 DATE OF ADMISSION: 11/02/2016 DATE OF DISCHARGE: 11/07/2016 ADMITTING DIAGNOSES: Leukocytosis pneumonia, chronic problems, history of atrial fibrillation, history of pig valve. HOSPITAL COURSE: This is a lady admitted with diagnoses as outlined above. Details are well-outlined in the history of the present illness, H&P. All events, lab procedures, diagnostic testing are well documented in the records. The patient was admitted, placed on optimize pulmonary toilet, shoulder was put back in place put in a sling. Pulmonary consulted with Dr. Loaiza, his recommendations were followed. Dr. Kang follows along for cardiology. All events, lab procedures, diagnostic testing are well documented in the records. She unfortunately deteriorated from respiratory standpoint. Labs and volume was closely followed. Supportive care given. Unfortunately, on 11/07/2016, she had a respiratory arrest. She was pronounced 11/07/2016 at 10:23. CAUSE OF : Respiratory arrest, atherosclerotic heart disease and pneumonia. Greater than 30 minutes was spent on this discharge. TRANSINT:[id number] Voice Confirmation ID: [id number] DOCUMENT ID: [id number] Dictated By: SAMINA DAWSON RN I have interviewed/examined the above patient and agree with these documented findings. HUGO HAHN M.D. at 1347 at 1515 CC: [id number] DICTATION DATE: 01/04/17 1647 BUFFING LINE SET UP WORKER: 01/05/17 0945 DIS IN 11/07/16 [facility] [address] [id number]
== END 2016-11-07 12:08 | DRG 190 ==
LOC: D.ER 16:36 → D.MS 18:46 → D.ICU 18:46
PROVIDERS: Internal Medicine Pulmonary Disease; Physician Assistant; ADMIT Family Medicine
PROC: 0RSJXZZ Reposition Right Shoulder Joint, External Approach (ICD-10-PCS; principal; 2016-11-02)
PROC: 0T9B70Z Drainage of Bladder with Drainage Device, Via Natural or Artificial Opening (ICD-10-PCS; 2016-11-03)
DX: J44.0 Chronic obstructive pulmonary disease with (acute) lower respiratory infection (principal); I21.3 ST elevation (STEMI) myocardial infarction of unspecified site; J96.01 Acute respiratory failure with hypoxia; J18.9 Pneumonia, unspecified organism; N17.0 Acute kidney failure with tubular necrosis; I50.21 Acute systolic (congestive) heart failure; I11.0 Hypertensive heart disease with heart failure; J44.1 Chronic obstructive pulmonary disease with (acute) exacerbation; S43.004A Unspecified dislocation of right shoulder joint, initial encounter; X58.XXXA Exposure to other specified factors, initial encounter; I48.91 Unspecified atrial fibrillation; Z95.2 Presence of prosthetic heart valve; Z66 Do not resuscitate